=== PATIENT | male | born 1970 | race Caucasian/White ===

== ENCOUNTER 2019-06-30 19:15 | Emergency (ER) | payer SELFPAY, OTHER ==
[2019-06-30] MEDS: HYDROmorphONE 0.5 MG/0.5 ML SYG IV (20:18)
[2019-06-30] MEDS: SOD CHLORIDE 0.9% 1,000 ML IV (20:18)
[2019-06-30] MEDS: PROPOFOL 200 MG INJ IV (21:48)
== END 2019-06-30 23:25 | disposition home or self-care (01) ==
LOC: E/R 19:15
DX: S43.014A Anterior dislocation of right humerus, initial encounter (principal); S01.81XA Laceration without foreign body of other part of head, initial encounter; V00.131A Fall from skateboard, initial encounter; Y92.9 Unspecified place or not applicable
CPT/HCPCS: 12011; 73030-RT; 94770; 96374; 99285-25